=== PATIENT | male | born 1945 | race Caucasian/White ===

== ENCOUNTER 2017-10-21 20:20 | Emergency (ER) | payer MEDICARE ==
[~2017-10-21] VITALS: Ht 175.3 cm; Wt 108.0 kg
[~2017-10-21 20:20] MED LIST: AMLO5TAB2 PO; ASPI1TAB69 PO; ATOR40TA16 PO; DOXY100C PO; GABA600T PO; HYDR-755 PO; METO25TA3 PO; MULT1TAB84 PO; NITR1SUB3 SL; OMEGCAP PO; OMEP20TA93 PO; PLAV75TA29 PO; SULF1TAB23 PO; TRAM50TA PO; ZOLP10TA3 PO
[2017-10-21 20:36] VITALS: BP 165/87; PULSE 101; RESP 18; TEMP 97.7; O2SAT 96
[2017-10-21] MEDS ORDERED: ASPI-516 CHEW (21:00)
[2017-10-21] MEDS ORDERED: TYLETAB34 PO (21:00)
--- NOTE | 2017-10-21 21:02 | PD ---
HPI Chief Complaint: Injury Time Seen by Provider: 20:52 Travel History International Travel<30 days: No Contact w/Intl Traveler<30days: No Traveled to known affect area: No History of Present Illness HPI 72-year-old male presents to the emergency department by private transportation complaining of severe neck pain and headache. Patient states Monday evening he had a reported non-syncopal slip and fall while walking his dog. Patient states he does not recall hitting his head does not recall having loss of consciousness but today has severe neck pain with associated intermittent severe headache. Patient states he takes aspirin daily and no other blood thinning agents. Patient denies other injury although he thought he would have some hip bruising or pain but states he has been able ambulate without difficulty no right shoulder or upper extremity pain no back pain no chest pain no rib pain no shortness of breath no abdominal pain. Patient states that he was able to get up and ambulate home after his fall and had felt well until this evening. Patient denies other concerns or complaints. 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; no tobacco: nursing notes reviewed Hx Anticoagulant Therapy: Yes (BABY ASA) Arthritis: Yes (IN CHEST WALL, BILATERAL KNEES) Asthma: No Autoimmune Disease: No Blood Disorders: No Heart Rhythm Problems: No Cancer: No Cardiac Catheterization: Yes Cardiovascular Problems: Yes High Cholesterol: Yes Chemotherapy: No Chest Pain: No Congestive Heart Failure: No COPD: No Cerebrovascular Accident: Yes (TIA) Diminished Hearing: No Endocrine: No Gastrointestinal Disorders: No GERD: Yes Genitourinary: Yes Headaches: Yes Hiatal Hernia: No Hypertension: No Immune Disorder: No Implanted Vascular Access Dvce: Yes Kidney Stones: No Musculoskeletal: Yes (CHRONIC PAIN, HAMMERTOES, BUNIONS) Neurologic: Yes (BRAIN INJURY 50 + YRS AGO ) Psychiatric: No Reproductive: No Respiratory: Yes Immunizations Current: Yes Migraines: Yes Radiation Therapy: No Renal Failure: No Seizures: No Sleep Apnea: No Thyroid Disease: No Ulcer: No ?: Not Past Surgical History Abdominal Surgery: Yes ("ABD HERNIA" ) AICD: No Arteriovenous Shunt: No Body Medical Devices: ? METAL CHIP IN POSTERIOR CRANIUM Cardiac Surgery: Yes (AUG 2012 (AFTER [place])) Ear Surgery: No Endocrine Surgery: No Eye Surgery: Yes (L.EYE--1960'S) Genitourinary Surgery: No Gynecologic Surgery: No Hysterectomy: No Insulin Pump: No Joint Replacement: Yes (BILAT KNEES) Neurologic Surgery: Yes ( REMOVED CRANIAL SECTION - PT UNCERTAIN ) Oral Surgery: Yes (TEETH REMOVED) Pacemaker: No Thoracic Surgery: No Other Surgery: Yes Social History Alcohol Use: No Tobacco Use: No Substance Use: No Allergies-Medications (Allergen,Severity, Reaction): Coded Allergies: iodine (Verified Allergy, Severe, 10/21/17) BETADINE OK, TOPICAL ONLY potassium iodide (Verified Allergy, Severe, 10/21/17) BETADINE OK, TOPICAL ONLY povidone-iodine (Verified Allergy, Severe, 10/21/17) BETADINE OK, TOPICAL ONLY shellfish derived (Verified Allergy, Severe, RASH SOB, 10/21/17) sodium iodide (Verified Allergy, Severe, 10/21/17) BETADINE OK, TOPICAL ONLY sodium iodide (Verified Allergy, Severe, 10/21/17) BETADINE OK, TOPICAL ONLY trifluoperazine (Verified Allergy, Severe, 10/21/17) Uncoded Allergies: ONIONS (Allergy, Mild, Rash, 10/01/12) RAW RAW TOMATOES (Allergy, Mild, Rash, 09/06/12) Reported Meds & Prescriptions Reported Meds & Active Scripts Active Reported Tylenol-Codeine #3 (Acetaminophen-Codeine) 300-30 mg Tab Unknown Dose PO Q4H PRN Aspirin 81 Mg Chew 81 Mg CHEW DAILY Gabapentin 600 Mg Tab 600 Mg PO BID Review of Systems Except as stated in HPI: all other systems reviewed are Neg Physical Exam Narrative GENERAL: Well-developed well-nourished male in no acute distress or respiratory distress SKIN: Warm and dry. HEAD: Normocephalic. EYES: No scleral icterus. No injection or drainage. NECK: Supple, trachea midline. No JVD or lymphadenopathy. Reproducible midline tenderness to direct palpation along the mid cervical spine with no bony step- off. CARDIOVASCULAR: Regular rate and rhythm without murmurs, gallops, or rubs. RESPIRATORY: Breath sounds equal bilaterally. No accessory muscle use. GASTROINTESTINAL: Abdomen soft, non-tender, nondistended. MUSCULOSKELETAL: No cyanosis, or edema. BACK: Nontender without obvious deformity. No CVA tenderness. Data Data Last Documented VS Vital Signs Date Time Temp Pulse Resp B/P (MAP) Pulse Ox O2 Delivery O2 Flow Rate FiO2 10/21/17 20:36 97.7 101 18 165/87 (113) 96 Orders Orders Apply Cervical Collar (10/21/17 20:57) Ct Cerv Spine W/O Contrast (10/21/17 ) Ct Brain W/O Iv Contrast(Rout) (10/21/17 ) MDM Medical Decision Making Medical Screen Exam Complete: Yes Emergency Medical Condition: Yes Medical Record Reviewed: Yes Interpretation(s) Last Impressions Head CT 10/21/17 0000 Signed Impressions: Service Date/Time: Saturday, October 21, 2017 22:07 - CONCLUSION: 1. Stable noncontrast head CT. No acute intracranial abnormality is identified. 2. The left lens remains abnormal, stable from the prior study. Willi Mosher MD Cervical Spine CT 10/21/17 0000 Signed Impressions: Service Date/Time: Saturday, October 21, 2017 22:07 - CONCLUSION: 1. No acute cervical spine abnormality is identified. 2. There is severe multilevel degenerative disc disease with severe left neural foraminal stenosis at C3-C4 and stable 3 mm of anterolisthesis of C5 on C6 secondary to facet arthrosis. Willi Mosher MD Vital Signs Date Time Temp Pulse Resp B/P (MAP) Pulse Ox O2 Delivery O2 Flow Rate FiO2 10/21/17 20:36 97.7 101 18 165/87 (113) 96 Differential Diagnosis Cervical spine sprain strain fracture H&P cord injury ICH CHI cephalgia Narrative Course Imaging studies ordered CT brain noncontrast and CT cervical spine noncontrast and cervical collar applied Imaging studies reveals no acute abnormality cervical removed and patient encouraged to follow-up with his primary care provider is Tylenol as needed for minor pain and continues Tylenol with codeine for more significant pain use ice intermittently for first 12-24 hours and then change to moist heat. Diagnosis Primary Impression: Acute cervical myofascial strain Referrals: Primary Care Physician 2 days Patient Instructions: General Instructions Additional Instructions: Apply ice intermittently for first 12-24 hrs. then moist heat May take as tolerated acetaminophen/Tylenol every 4 hours for minor pain Continue chronic medications as chronically prescribed Return to the emergency department for concerns or change condition Follow-up with primary care provider on [place] Disposition: 01 DISCHARGE HOME Condition: Stable Salter,Harriett H. MD Oct 21, 2017 21:02
--- NOTE | 2017-10-21 22:31 | RADRPT ---
EXAM DATE/TIME: 10/21/2017 22:07 [facility] COMPARISON: CT BRAIN W/O CONTRAST, February 25, 2015, 23:06. INDICATIONS : Trauma, fall. RADIATION DOSE: 64.81 CTDIvol (mGy) MEDICAL HISTORY : Cardiovascular disease. TIA. SURGICAL HISTORY : None. ENCOUNTER: Initial ACUITY: 2 days PAIN SCALE: 0/10 LOCATION: cranial TECHNIQUE: Multiple contiguous axial images were obtained of the head. Using automated exposure control and adj ustment of the mA and/or kV according to patient size, radiation dose was kept as low as reasonably a chievable to obtain optimal diagnostic quality images. DICOM format image data is available electro nically for review and comparison. FINDINGS: CEREBRUM: There is mild generalized atrophy. Ventricles are normal in size given the degree of atrophy. No rowena dence of midline shift, mass lesion, hemorrhage or acute infarction. No extra-axial fluid collection s are seen. POSTERIOR FOSSA: The cerebellum and brainstem are intact. The 4th ventricle is midline. The cerebellopontine angle i s unremarkable. EXTRACRANIAL: The left lens is abnormal but stable from the prior study. SKULL: The calvaria is intact. No evidence of skull fracture. CONCLUSION: 1. Stable noncontrast head CT. No acute intracranial abnormality is identified. 2. The left lens remains abnormal, stable from the prior study. Willi Mosher MD on October 21, 2017 at 22:27 Board Certified Radiologist. This report was verified electronically.
--- NOTE | 2017-10-21 22:36 | RADRPT ---
EXAM DATE/TIME: 10/21/2017 22:07 [facility] COMPARISON: CT CERVICAL SPINE W/O CONTRAST, February 26, 2015, 1:40. INDICATIONS : Trauma, fall. Neck pain, unable to hold up head. RADIATION DOSE: 26.32 CTDIvol (mGy) MEDICAL HISTORY : Cardiovascular disease. TIA. SURGICAL HISTORY : None. ENCOUNTER: Initial ACUITY: 2 days PAIN SCALE: 10/10 LOCATION: neck TECHNIQUE: Volumetric scanning of the cervical spine was performed. Multiplanar reconstructions in the sagittal, coronal and oblique axial planes were performed. Using automated exposure control and adjustment o f the mA and/or kV according to patient size, radiation dose was kept as low as reasonably achievable to obtain optimal diagnostic quality images. DICOM format image data is available electronically f or review and comparison. FINDINGS: There is stable 3 mm of anterolisthesis of C5 on C6. Bilateral facet arthrosis is present at this lev el. The atlantoaxial relationship is within normal limits. There is no prevertebral soft tissue swell ing present. No fracture or dislocation is identified. There is severe degenerative disc disease that is most severe at C3-C4, C4-C5, C6-C7, and C7-T1. On the left at C3-C4 there is severe neural forami nal narrowing secondary to uncovertebral and facet osteophytes. This finding is stable. There is stab le severe degenerative change between the right occipital condyle and lateral mass of C1. The visualized portions of the posterior fossa, paraspinous soft tissues, and upper lung zones demons trate no acute abnormality. CONCLUSION: 1. No acute cervical spine abnormality is identified. 2. There is severe multilevel degenerative disc disease with severe left neural foraminal stenosis at C3-C4 and stable 3 mm of anterolisthesis of C5 on C6 secondary to facet arthrosis. Willi Mosher MD on October 21, 2017 at 22:30 Board Certified Radiologist. This report was verified electronically.
== END 2017-10-21 23:00 | disposition home or self-care (01) ==
LOC: PHEFT 20:20
DX: S16.1XXA Strain of muscle, fascia and tendon at neck level, initial encounter (principal); I25.10 Atherosclerotic heart disease of native coronary artery without angina pectoris; I25.2 Old myocardial infarction; E78.00 Pure hypercholesterolemia, unspecified; M48.02 Spinal stenosis, cervical region; W01.0XXA Fall on same level from slipping, tripping and stumbling without subsequent striking against object, initial encounter; Y93.K1 Activity, walking an animal; Z87.820 Personal history of traumatic brain injury; Z95.5 Presence of coronary angioplasty implant and graft; Z88.8 Allergy status to other drugs, medicaments and biological substances; Z79.82 Long term (current) use of aspirin; Z79.899 Other long term (current) drug therapy
CPT/HCPCS: 70450; 72125

== ENCOUNTER 2017-12-03 12:39 | Emergency (ER) | payer MEDICARE ==
[~2017-12-03] VITALS: Ht 175.3 cm; Wt 106.5 kg
[~2017-12-03 12:39] MED LIST changes: -AMLO5TAB2 PO; +ASPI-516 CHEW; -ASPI1TAB69 PO; -ATOR40TA16 PO; -DOXY100C PO; -HYDR-755 PO; -METO25TA3 PO; -MULT1TAB84 PO; -NITR1SUB3 SL; -OMEGCAP PO; -OMEP20TA93 PO; -PLAV75TA29 PO; -SULF1TAB23 PO; -TRAM50TA PO; +TYLETAB34 PO; -ZOLP10TA3 PO
[2017-12-03 12:55] VITALS: BP 157/87; PULSE 84; RESP 18; TEMP 97.2; O2SAT 96
[2017-12-03] MEDS ORDERED: CLIN300C5 PO (14:41)
[2017-12-03] MEDS ORDERED: DIPHTH/TETANUS/ACEL PERTUSSIS (BOOSTER) 0.5 ML VIAL/PFS IM ONE (14:45)
[2017-12-03] MEDS ORDERED: SODIUM CHLORIDE 0.9% FLUSH 10 ML FLUSH IV FLUSH PRN (14:45)
--- NOTE | 2017-12-03 14:58 | PD ---
HPI Chief Complaint: Skin Problem Time Seen by Provider: 14:32 Travel History International Travel<30 days: No Contact w/Intl Traveler<30days: No Traveled to known affect area: No History of Present Illness HPI Patient is a 72-year-old male who presents the emergency room with complaints of left ankle pain and swelling. Patient reports that one week ago, he fell landing onto his left lower extremity. Patient reports at that time, he landed on his left ankle. Reports that he went to an urgent care facility and was treated for a cellulitis with clindamycin, his last dose will be today. Patient reports that no x-ray was obtained to his left ankle, patient reports increased pain and swelling to the extremity. He has been ambulating using his cane with assist. Patient reports that he is still having pain and swelling to his left ankle and was concerned for possible infection. Patient denies any fevers or chills, denies any nausea or vomiting, patient with no other complaints. PFSH Past Medical History Hx Anticoagulant Therapy: Yes (BABY ASA) Arthritis: Yes (IN CHEST WALL, BILATERAL KNEES) Asthma: No Autoimmune Disease: No Blood Disorders: No Heart Rhythm Problems: No Cancer: No Cardiac Catheterization: Yes (2 stents) Cardiovascular Problems: Yes High Cholesterol: Yes Chemotherapy: No Chest Pain: No Congestive Heart Failure: No COPD: No Cerebrovascular Accident: Yes Diabetes: Yes Patient Takes Glucophage: No Diminished Hearing: No Endocrine: No Gastrointestinal Disorders: No GERD: Yes Genitourinary: Yes Headaches: Yes Hiatal Hernia: No Hypertension: No Immune Disorder: No Implanted Vascular Access Dvce: Yes Kidney Stones: No Musculoskeletal: Yes (CHRONIC PAIN, HAMMERTOES, BUNIONS) Neurologic: Yes (BRAIN INJURY 50 + YRS AGO ) Psychiatric: No Reproductive: No Respiratory: Yes Immunizations Current: Yes Migraines: Yes Radiation Therapy: No Renal Failure: No Seizures: No Sleep Apnea: No Thyroid Disease: No Ulcer: No Influenza Vaccination: No ?: Not Past Surgical History Abdominal Surgery: Yes ("ABD HERNIA" ) AICD: No Arteriovenous Shunt: No Body Medical Devices: ? METAL CHIP IN POSTERIOR CRANIUM Cardiac Surgery: Yes (AUG 2012 (AFTER [place])) Ear Surgery: No Endocrine Surgery: No Eye Surgery: Yes (L.EYE--) Genitourinary Surgery: No Gynecologic Surgery: No Hysterectomy: No Insulin Pump: No Joint Replacement: Yes (BILAT KNEES) Neurologic Surgery: Yes ( REMOVED CRANIAL SECTION ) Oral Surgery: Yes (TEETH REMOVED) Pacemaker: No Thoracic Surgery: No Other Surgery: Yes Social History Alcohol Use: No Tobacco Use: No Substance Use: No Allergies-Medications (Allergen,Severity, Reaction): Coded Allergies: iodine (Verified Allergy, Severe, 12/03/17) BETADINE OK, TOPICAL ONLY potassium iodide (Verified Allergy, Severe, 12/03/17) BETADINE OK, TOPICAL ONLY povidone-iodine (Verified Allergy, Severe, 12/03/17) BETADINE OK, TOPICAL ONLY shellfish derived (Verified Allergy, Severe, RASH SOB, 12/03/17) sodium iodide (Verified Allergy, Severe, 12/03/17) BETADINE OK, TOPICAL ONLY sodium iodide (Verified Allergy, Severe, 12/03/17) BETADINE OK, TOPICAL ONLY trifluoperazine (Verified Allergy, Severe, 12/03/17) Uncoded Allergies: ONIONS (Allergy, Mild, Rash, 10/01/12) RAW RAW TOMATOES (Allergy, Mild, Rash, 09/06/12) Reported Meds & Prescriptions Reported Meds & Active Scripts Active Reported Clindamycin (Clindamycin HCl) 300 Mg Cap 300 Mg PO Q6H Aspirin 81 Mg Chew 81 Mg CHEW DAILY Gabapentin 600 Mg Tab 600 Mg PO BID Review of Systems General / Constitutional: No: Fever, Chills Eyes: No: Visual changes HENT: No: Headaches Cardiovascular: No: Chest Pain or Discomfort Respiratory: No: Shortness of Breath Gastrointestinal: No: Abdominal Pain Genitourinary: No: Dysuria Musculoskeletal: Positive: Edema, Pain Skin: No Rash Neurologic: No: Weakness Psychiatric: No: Depression Endocrine: No: Polydipsia Hematologic/Lymphatic: No: Easy Bruising Physical Exam Narrative GENERAL: No acute distress, nontoxic SKIN: Focused skin assessment warm/dry. HEAD: Atraumatic. Normocephalic. EYES: Pupils equal and round. No scleral icterus. No injection or drainage. ENT: No nasal bleeding or discharge. Mucous membranes pink and moist. NECK: Trachea midline. No JVD. CARDIOVASCULAR: Regular rate and rhythm. No murmur appreciated. RESPIRATORY: No accessory muscle use. Clear to auscultation. Breath sounds equal bilaterally. GASTROINTESTINAL: Abdomen soft, non-tender, nondistended. Hepatic and splenic margins not palpable. MUSCULOSKELETAL: No obvious deformities. No clubbing. No cyanosis. +1 edema to left lower extremity, patient with no erythema to left lower extremity, he does have pain with range of motion to the left ankle, pulses intact, neurovascular intact. NEUROLOGICAL: Awake and alert. No obvious cranial nerve deficits. Motor grossly within normal limits. Normal speech. PSYCHIATRIC: Appropriate mood and affect; insight and judgment normal. Data Data Last Documented VS Vital Signs Date Time Temp Pulse Resp B/P (MAP) Pulse Ox O2 Delivery O2 Flow Rate FiO2 12/03/17 12:55 97.2 84 18 157/87 (110) 96 Orders Orders Basic Metabolic Panel (Bmp) (12/03/17 14:38) Complete Blood Count With Diff (12/03/17 14:38) Prothrombin Time / Inr (Pt) (12/03/17 14:38) Act Partial Throm Time (Ptt) (12/03/17 14:38) Iv Access Insert/Monitor (12/03/17 14:38) Sodium Chloride 0.9% Flush (Ns Flush) (12/03/17 14:45) Ankle, Complete ([id number]) (12/03/17 ) Tibia/Fibula (Ap/Lat) (12/03/17 ) Rowp-Kxf-Udeich (Booster) Inj (Boostrix (12/03/17 14:45) Bacitracin Oint Packet (Bacitracin Oint (12/03/17 16:45) Ed Discharge Order (12/03/17 16:44) Labs Laboratory Tests Test 12/03/17 15:25 White Blood Count 6.2 TH/MM3 Red Blood Count 3.96 MIL/MM3 Hemoglobin 11.3 GM/DL Hematocrit 34.4 % Mean Corpuscular Volume 87.0 FL Mean Corpuscular Hemoglobin 28.5 PG Mean Corpuscular Hemoglobin Concent 32.8 % Red Cell Distribution Width 15.2 % Platelet Count 420 TH/MM3 Mean Platelet Volume 6.9 FL Neutrophils (%) (Auto) 67.7 % Lymphocytes (%) (Auto) 20.2 % Monocytes (%) (Auto) 7.2 % Eosinophils (%) (Auto) 3.1 % Basophils (%) (Auto) 1.8 % Neutrophils # (Auto) 4.2 TH/MM3 Lymphocytes # (Auto) 1.3 TH/MM3 Monocytes # (Auto) 0.4 TH/MM3 Eosinophils # (Auto) 0.2 TH/MM3 Basophils # (Auto) 0.1 TH/MM3 CBC Comment DIFF FINAL Differential Comment Prothrombin Time 10.3 SEC Prothromb Time International Ratio 1.0 RATIO Activated Partial Thromboplast Time 26.4 SEC Blood Urea Nitrogen 22 MG/DL Creatinine 1.00 MG/DL Random Glucose 100 MG/DL Calcium Level 9.4 MG/DL Sodium Level 139 MEQ/L Potassium Level 4.2 MEQ/L Chloride Level 104 MEQ/L Carbon Dioxide Level 28.7 MEQ/L Anion Gap 6 MEQ/L Estimat Glomerular Filtration Rate 73 ML/MIN MDM Medical Decision Making Medical Screen Exam Complete: Yes Emergency Medical Condition: Yes Medical Record Reviewed: Yes Interpretation(s) Vital Signs Date Time Temp Pulse Resp B/P (MAP) Pulse Ox O2 Delivery O2 Flow Rate FiO2 12/03/17 12:55 97.2 84 18 157/87 (110) 96 Differential Diagnosis Dependent edema, cellulitis, fracture Narrative Course 72-year-old male who presents to emergency room with complaints of pain and swelling to left lower extremity status post fall 1 week ago. Patient has been ambulating with his cane for the past week with mild difficulty. He is currently completing a course of clindamycin for treatment of cellulitis of his left lower extremity. There does not seem to be any erythema to lower extremity at this time, I do think that the patient has resolution of his cellulitis During the course of the patients emergency department visit, the patients history, examination, and differential diagnosis were reviewed with the patient. The patient was placed on a compliance monitor with oximetry and frequent blood pressure monitoring. The patient had an IV access obtained and blood work sent for analysis. The patient was initially provided IV tetanus The patients laboratory studies were reviewed and remarkable for: CBC & BMP Diagram 12/03/17 15:25 Calcium Level 9.4 Radiology studies were reviewed and remarkable for No acute fractures on xrays of lower extremity I reviewed all labs and all studies with patient in detail, discussed need for ice, rest and elevation of left lower extremity. Patient does not have any fractures or any signs of cellulitis, signs and symptoms of when to return to the emergency room was reviewed with patient in detail. Diagnosis Primary Impression: Left ankle sprain Qualified Codes: S93.402A - Sprain of unspecified ligament of left ankle, initial encounter Additional Impression: Edema of left lower extremity Patient Instructions: General Instructions Additional Instructions: Please provide patient with a copy of their lab work and studies at discharge* * Please follow up with your primary care doctor in 2-3 days Return to the ER if symptoms worsen or progress Return to the ER as needed Please elevate your left lower extremity above the heart to help decrease swelling Keep area of wound clean and covered, apply bacitracin or antibiotic ointment 3 times a day Disposition: 01 DISCHARGE HOME Condition: Stable Vane Tello DO Dec 03, 2017 14:58
[2017-12-03 15:40] LABS: AUTOMATED NEUTROPHIL # 4.2 TH/MM3 (1.8-7.7); BASOPHIL # 0.1 TH/MM3 (0-0.2); BASOPHIL % 1.8 % (0.0-2.0); EOSINOPHIL # 0.2 TH/MM3 (0-0.4); EOSINOPHIL % 3.1 % (0.0-4.0); HEMATOCRIT 34.4 % (39.0-51.0); HEMOGLOBIN 11.3 GM/DL (13.0-17.0); LYMPH % 20.2 % (9.0-44.0); LYMPHOCYTE # 1.3 TH/MM3 (1.0-4.8); MEAN CORPUSCULAR HEMOGLOBIN 28.5 PG (27.0-34.0); MEAN CORPUSCULAR HGB CONC 32.8 % (32.0-36.0); MEAN PLATELET VOLUME 6.9 FL (7.0-11.0); MONO % 7.2 % (0.0-8.0); MONOCYTE # 0.4 TH/MM3 (0-0.9); NEUT % 67.7 % (16.0-70.0); PLATELET COUNT 420 TH/MM3 (150-450); RED BLOOD COUNT 3.96 MIL/MM3 (4.50-5.90); RED CELL DISTRIBUTION WIDTH 15.2 % (11.6-17.2); WHITE BLOOD COUNT 6.2 TH/MM3 (4.0-11.0)
[2017-12-03 15:54] LABS: CALCIUM 9.4 MG/DL (8.5-10.1)
[2017-12-03 15:55] LABS: BICARBONATE 28.7 MEQ/L (21.0-32.0); PROTHROMBIN TIME - PATIENT 10.3 SEC (9.8-11.6)
--- NOTE | 2017-12-03 16:34 | RADRPT ---
EXAM DATE/TIME: 12/03/2017 16:09 [facility] COMPARISON: No previous studies available for comparison. INDICATIONS : Left lower leg pain and swelling, no known injury MEDICAL HISTORY : None. SURGICAL HISTORY : Total knee replacement, left. Total knee replacement, right. cardiac stent ENCOUNTER: Initial ACUITY: 2 days PAIN SCORE: 10/10 LOCATION: Left lower leg FINDINGS: Two view examination of the left tibia demonstrates no evidence of fracture or dislocation. Bony min eralization is normal. The soft tissue structures are grossly intact. There is diffuse subcutaneous edema Patient has a left total knee arthroplasty without evidence of an acute complication. CONCLUSION: Nonspecific subcutaneous edema. No acute bony abnormality. Willi Kaur MD on December 03, 2017 at 16:31 Board Certified Radiologist. This report was verified electronically.
--- NOTE | 2017-12-03 16:36 | RADRPT ---
EXAM DATE/TIME: 12/03/2017 16:09 [facility] COMPARISON: No previous studies available for comparison. INDICATIONS : Left ankle pain and swelling for 2 days, no known injury MEDICAL HISTORY : None. SURGICAL HISTORY : Total knee replacement, left. Total knee replacement, right. cardiac stent ENCOUNTER: Initial ACUITY: 2 days PAIN SCORE: 10/10 LOCATION: Left ankle FINDINGS: Three view exam was performed of the left ankle. The bony structures are in normal alignment. No ev idence of fracture, dislocation. The ankle mortise is intact. No radiopaque foreign bodies are seen. Bony mineralization is normal. CONCLUSION: 1. Soft tissue swelling of the left ankle. No acute bony abnormality. Amanuel Palacios MD on December 03, 2017 at 16:29 Board Certified Radiologist. This report was verified electronically.
[2017-12-03] MEDS ORDERED: BACITRACIN OINT 0.9 GM PKT TOPICAL ONE (16:45)
== END 2017-12-03 17:04 | disposition home or self-care (01) ==
LOC: PHED 12:39 → PHEFT 17:04
DX: S93.402A Sprain of unspecified ligament of left ankle, initial encounter (principal); E78.00 Pure hypercholesterolemia, unspecified; E11.9 Type 2 diabetes mellitus without complications; K21.9 Gastro-esophageal reflux disease without esophagitis; M17.0 Bilateral primary osteoarthritis of knee; W19.XXXA Unspecified fall, initial encounter; Z79.82 Long term (current) use of aspirin; Z86.73 Personal history of transient ischemic attack (TIA), and cerebral infarction without residual deficits; Z23 Encounter for immunization
CPT/HCPCS: 73590; 73610; 80048; 85025; 85610; 85730; 90471; 90715

== ENCOUNTER 2017-12-07 00:10 | Emergency (ER) | payer MEDICARE ==
[~2017-12-07] VITALS: Ht 175.3 cm; Wt 106.5 kg
[~2017-12-07 00:10] MED LIST changes: +CLIN300C5 PO; -TYLETAB34 PO
[2017-12-07 00:14] VITALS: BP 167/85; PULSE 99; RESP 18; TEMP 97.8; O2SAT 96
[2017-12-07] MEDS ORDERED: AMBI10TA PO (00:47)
--- NOTE | 2017-12-07 01:18 | PD ---
HPI Chief Complaint: Bite or Sting Time Seen by Provider: 01:04 Travel History International Travel<30 days: No Contact w/Intl Traveler<30days: No Traveled to known affect area: No History of Present Illness HPI The patient is a 72-year-old male that was walking his dog at 6:30 PM tonight when he got stung, likely by a flying insect/arthropod. He complains of pain on the right arm including the wrist and it is difficult to move the arm. His removed the stinger. His last tetanus shot was several days ago when he came in for cellulitis of the left lower leg. He was given clindamycin and still is taking the medication. 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, BILATERAL KNEES) Asthma: No Autoimmune Disease: No Blood Disorders: No Heart Rhythm Problems: No Cancer: No Cardiac Catheterization: Yes (2 stents) Cardiovascular Problems: Yes High Cholesterol: Yes Chemotherapy: No Chest Pain: No Congestive Heart Failure: No COPD: No Cerebrovascular Accident: Yes Diabetes: Yes (diet controlled) Patient Takes Glucophage: No Diminished Hearing: No Endocrine: No Gastrointestinal Disorders: No GERD: Yes Genitourinary: Yes Headaches: Yes Hiatal Hernia: No Hypertension: No Immune Disorder: No Implanted Vascular Access Dvce: Yes Kidney Stones: No Medical other: Yes (ARTHRITIS CHEST WALL ) Musculoskeletal: Yes (CHRONIC PAIN, HAMMERTOES, BUNIONS) Neurologic: Yes (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 METAL CHIP IN POSTERIOR CRANIUM Cardiac Surgery: Yes (AUG 2012 (AFTER [facility])) Ear Surgery: No Endocrine Surgery: No Eye Surgery: Yes (L.EYE--) Genitourinary Surgery: No Gynecologic Surgery: No Hysterectomy: No Insulin Pump: No Joint Replacement: Yes (BILAT KNEES) Neurologic Surgery: Yes ( REMOVED CRANIAL SECTION ) Oral Surgery: Yes (TEETH REMOVED) Pacemaker: No Thoracic Surgery: No Other Surgery: Yes Social History Alcohol Use: No Tobacco Use: No Substance Use: No Allergies-Medications (Allergen,Severity, Reaction): Coded Allergies: iodine (Verified Allergy, Severe, 12/03/17) BETADINE OK, TOPICAL ONLY potassium iodide (Verified Allergy, Severe, 12/03/17) BETADINE OK, TOPICAL ONLY povidone-iodine (Verified Allergy, Severe, 12/03/17) BETADINE OK, TOPICAL ONLY shellfish derived (Verified Allergy, Severe, RASH SOB, 12/03/17) sodium iodide (Verified Allergy, Severe, 12/03/17) BETADINE OK, TOPICAL ONLY sodium iodide (Verified Allergy, Severe, 12/03/17) BETADINE OK, TOPICAL ONLY trifluoperazine (Verified Allergy, Severe, 12/03/17) Uncoded Allergies: ONIONS (Allergy, Mild, Rash, 10/01/12) RAW RAW TOMATOES (Allergy, Mild, Rash, 09/06/12) Reported Meds & Prescriptions Reported Meds & Active Scripts Active Reported Ambien (Zolpidem Tartrate) 10 Mg Tab 10 Mg PO HS Aspirin 81 Mg Chew 81 Mg CHEW DAILY Gabapentin 600 Mg Tab 600 Mg PO BID Review of Systems Except as stated in HPI: all other systems reviewed are Neg Physical Exam Narrative GENERAL: The patient is alert, oriented 3 in moderate apparent distress with his right forearm discomfort. His vital signs show blood pressure 167/85 but are otherwise normal. SKIN: Focused skin assessment warm/dry. There is a small punctate wound where the stinger was apparently removed on the right forearm. Minimal erythema is present and considerable tenderness is present on the musculature of the right forearm. HEAD: Atraumatic. Normocephalic. EYES: Pupils equal and round. No scleral icterus. No injection or drainage. ENT: No nasal bleeding or discharge. Mucous membranes pink and moist. NECK: Trachea midline. No JVD. CARDIOVASCULAR: Regular rate and rhythm. No murmur appreciated. RESPIRATORY: No accessory muscle use. Clear to auscultation. Breath sounds equal bilaterally. GASTROINTESTINAL: Abdomen soft, non-tender, nondistended. Hepatic and splenic margins not palpable. MUSCULOSKELETAL: No obvious deformities. No clubbing. No cyanosis. No edema. NEUROLOGICAL: Awake and alert. No obvious cranial nerve deficits. Motor grossly within normal limits. Normal speech. PSYCHIATRIC: Appropriate mood and affect; insight and judgment normal. Data Data Last Documented VS Vital Signs Date Time Temp Pulse Resp B/P (MAP) Pulse Ox O2 Delivery O2 Flow Rate FiO2 12/07/17 00:14 97.8 99 18 167/85 (112) 96 Orders Orders Diphenhydramine (Benadryl) (12/07/17 01:30) Prednisone (Deltasone) (12/07/17 01:30) Ketorolac Inj (Toradol Inj) (12/07/17 01:30) Splint Or Brace Apply/Monitor (12/07/17 01:19) [facility] Medical Decision Making Medical Screen Exam Complete: Yes Emergency Medical Condition: Yes Medical Record Reviewed: Yes Differential Diagnosis Toxic reaction to sting, cellulitis-unlikely, toxic arthritis-unlikely Narrative Course The patient appears to have a toxic reaction to a sting. Plan: He will be given Benadryl and prednisone single dose and a shot of Toradol. He will also get a sling. Diagnosis Primary Impression: Sting of hornets, wasps, and bees causing poisoning and toxic reactions Additional Instructions: This should resolve within a day or 2. Wear the sling and take Benadryl 25 mg, 1 tablet 3 times daily. Continue to take your antibiotic as prescribed. If your right arm is not better within 2 days, we should reevaluate it again in the emergency department. Disposition: 01 DISCHARGE HOME Condition: Stable Shyam Estrada MD Dec 07, 2017 01:18
[2017-12-07] MEDS ORDERED: diphenhydrAMINE HCL 25 MG CAP PO ONE (01:30)
[2017-12-07] MEDS ORDERED: KETOROLAC TROMETHAMINE 60 MG/2 ML (IM) VIAL IM ONE (01:30)
[2017-12-07] MEDS ORDERED: predniSONE 20 MG TAB PO ONE (01:30)
[2017-12-07 01:35] VITALS: BP 183/98; PULSE 88; RESP 18; O2SAT 96
[2017-12-07 02:15] VITALS: RESP 18
== END 2017-12-07 02:25 | disposition home or self-care (01) ==
LOC: PHED 00:10
DX: T63.481A Toxic effect of venom of other arthropod, accidental (unintentional), initial encounter (principal); E78.00 Pure hypercholesterolemia, unspecified; E11.9 Type 2 diabetes mellitus without complications; K21.9 Gastro-esophageal reflux disease without esophagitis; G89.29 Other chronic pain; I25.2 Old myocardial infarction; M19.90 Unspecified osteoarthritis, unspecified site; Z86.73 Personal history of transient ischemic attack (TIA), and cerebral infarction without residual deficits
CPT/HCPCS: 96372; 99283; J1885; J7512